=== PATIENT | female | born 2000 | race Caucasian/White ===

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

== ENCOUNTER 2022-09-26 13:23 | Emergency (ER) | payer OTHER, BC | END 2022-09-26 14:53 | disposition home or self-care (01) | LOC: CC.ED 13:23 | DX: S93.401A Sprain of unspecified ligament of right ankle, initial encounter (principal); Z91.048 Other nonmedicinal substance allergy status; Z91.040 Latex allergy status; Z91.018 Allergy to other foods; Z91.030 Bee allergy status; Z72.0 Tobacco use; X50.1XXA Overexertion from prolonged static or awkward postures, initial encounter | CPT/HCPCS: 73610-RT; 99283 ==